=== PATIENT | female | born 1985 | race Caucasian/White ===

== ENCOUNTER 2018-03-22 01:10 | Emergency (ER) | payer OTHER ==
[~2018-03-22] VITALS: Ht 152.4 cm; Wt 83.9 kg
[2018-03-22] MEDS ORDERED: RX-NAPROXEN (NAPROSYN) 250 MG TAB PPK#4 PO STA (01:35)
--- NOTE | 2018-03-22 01:38 | ED EENT ---
History of Present Illness General Chief Complaint: Dental Problems/Pain Stated Complaint: TOOTH PAIN Nursing Triage Note: PT TO ED 6 W/ C/O DENTAL PAIN ONSET AFTER BREAKING A TOOTH WHILE EATING. PT POINTS WHEN TALKING ABOUT BROKEN TOOTH TO THE TOP FRONT BUT WHEN ASKED WHERE THE BROKEN TOOTH IS, PT STATES TOOTH ON THE BOTTOM AT THE BACK. REPORTS JUST MOVED HERE AND DOES NOT HAVE A DENTIST Source: patient Exam Limitations: no limitations History of Present Illness Date Seen by Provider: Mar 22, 2018 Time Seen by Provider: 01:25 Initial Comments PT ARRIVES VIA POV FROM HOME C/O DENTAL PAIN--STATES HER TOOTH BROKE OFF WHILE SHE WAS EATING "SOMETIME TONIGHT" --CANNOT STATE AROUND WHAT TIME, OR WHAT SHE WAS EATING AT THE TIME NO RELIEF WITH 2 ALEVE, TAKEN 3 HOURS AGO. HAS HISTORY OF SIMILAR ON ANOTHER TOOTH. PT DOES NOT HAVE A DENTIST --STATES HE JUST MOVED HERE 2 MONTHS AGO FROM [place], [place]. LMP 2 MONTHS AGO. NO CONTROL. STATES LAST INTERCOURSE WAS OVER 5 MONTHS AGO NO PCP NO DENTIST Allergies and Home Medications Allergies Coded Allergies: No Known Drug Allergies (Unverified , 03/22/18) Home Medications Amoxicillin/Potassium Clav 1 Each Tablet, 1 EACH PO BID Prescribed by: AVRIL PENNINGTON on 03/22/18 014 Lidocaine HCl 15 Ml Solution, 15 ML MM Q 1-2 HOURS Prescribed by: AVRIL PENNINGTON on 03/22/18 014 Naproxen 500 Mg Tablet, 500 MG PO BID Prescribed by: AVRIL PENNINGTON on 03/22/18 0140 Patient Home Medication List Home Medication List Reviewed: Yes Review of Systems Constitutional: no symptoms reported Eyes: No Symptoms Reported Ears: No Symptoms Reported Nose: no symptoms reported Mouth: see HPI, pain; denies swelling Throat: no symptoms reported Respiratory: no symptoms reported Cardiovascular: no symptoms reported Musculoskeletal: no symptoms reported Skin: no symptoms reported Neurological: No Symptoms Reported Hematologic/Lymphatic: No Symptoms Reported Past Alqwrel-Uyihdq-Iivbso Hx Patient Social History Alcohol Use: Denies Use Recreational Drug Use: No Smoking Status: Never a Smoker Recent Foreign Travel: No Contact w/Someone Who Travel: No Recent Infectious Disease Expo: No Recent Hopitalizations: No Past Medical History Surgeries: Yes (WISDOM TEETH REMOVED) Respiratory: No Cardiac: No Neurological: No : No Genitourinary: No Gastrointestinal: No Musculoskeletal: No Endocrine: No HEENT: No Cancer: No Psychosocial: No Integumentary: No Blood Disorders: No Physical Exam Vital Signs Vital Signs - First Documented 03/22/18 01:23 Temp 95.7 Pulse 108 Resp 20 B/P (MAP) 134/97 (109) Pulse Ox 99 O2 Delivery Room Air General Appearance: no apparent distress, obese Eyes: bilateral eye normal inspection, bilateral eye PERRL, bilateral eye EOMI Ears: bilateral ear TM normal Nose: normal inspection Mouth/Throat: No mandibular swelling, No maxillary swelling; other (RIGHT LOWER 2ND MOLAR WITH EXTENSIVE DECAY DOWN TO GUMS, WITH PART OF TOOTH APPEARING TO BE BROKEN OFF. NO BLEEDING. NO SWELLING OF GUMS. 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, no motor/sensory deficits, alert, normal mood/affect, oriented x 3 Skin: normal color Progress/Results/Core Measures Results/Orders My Orders Orders - AVRLI PENNINGTON DO Rx-Naproxen (Rx-Naprosyn) (03/22/18 01:35) Amoxicillin/Clavulanate Tablet (Augmenti (03/22/18 01:45) Lidocaine 2% Viscous 15 Ml (Xylocaine Vi (03/22/18 01:45) Medications Given in ED Current Medications Medications Dose Ordered Sig/Liliam Route Start Time Stop Time Status Last Admin Dose Admin Lidocaine HCl 5 ml ONCE ONCE PO 03/22/18 01:45 03/22/18 01:46 DC 03/22/18 01:59 5 ML Vital Signs/I&O 03/22/18 03/22/18 01:23 02:00 Temp 95.7 95.7 Pulse 108 108 Resp 20 20 B/P (MAP) 134/97 (109) 134/97 (109) Pulse Ox 99 99 O2 Delivery Room Air Blood Pressure Mean: 109 Departure Impression Primary Impression: Dental caries Additional Impression: Broken tooth Disposition: HOME, SELF-CARE Condition: Stable Departure-Patient Inst. Referrals: NO,LOCAL PHYSICIAN (PCP) Primary Care Physician Patient Instructions: Fractured Tooth (DC), Dental Pain (DC), Tooth Decay, Adult (DC) Add. Discharge Instructions: FREQUENT SALT WATER SWISHES TYLENOL NEEDED FOR PAIN FOLLOW UP WITH DENTIST OF CHOICE NEXT WEEK FOR FURTHER CARE All discharge instructions reviewed with patient and/or family. Voiced understanding. Scripts Naproxen (Naproxen) 500 Mg Tablet 500 MG PO BID, #20 TAB Prov: AVRIL PENNINGTON DO 03/22/18 Lidocaine HCl (Lidocaine HCl Viscous) 15 Ml Solution 15 ML MM Q 1-2 HOURS for Pain, #100 ML Prov: AVRIL PENNINGTON DO 03/22/18 Amoxicillin/Potassium Clav (Augmentin 875-125 Tablet) 1 Each Tablet 1 EACH PO BID for INFECTION, #20 TAB Prov: AVRIL PENNINGTON DO 03/22/18 AVRIL PENNINGTON DO Mar 22, 2018 01:38
[2018-03-22] MEDS ORDERED: NAPR-915 PO (01:40)
[2018-03-22] MEDS ORDERED: AMOX-358 PO (01:40)
[2018-03-22] MEDS ORDERED: LIDO15SO2 MM (01:40)
[2018-03-22] MEDS ORDERED: LIDOCAINE 2% VISCOUS 15 ML UDC PO ONE (01:45)
[2018-03-22] MEDS ORDERED: AUGMENTIN 875 MG TAB (AMOXICILLIN/CLAVULANATE) PO SCH (01:45)
[2018-03-22 02:00] VITALS: BP 134/97
== END 2018-03-22 02:00 | disposition home or self-care (01) ==
LOC: ER 01:16
DX: K02.9 Dental caries, unspecified (principal); K03.81 Cracked tooth
CPT/HCPCS: 99282

== ENCOUNTER 2018-05-05 22:41 | Emergency (ER) | payer OTHER ==
[~2018-05-05] VITALS: Ht 152.4 cm; Wt 90.7 kg
[~2018-05-05 22:41] MED LIST: AMOX-358 PO; LIDO15SO2 MM; NAPR-915 PO
[2018-05-05] MEDS ORDERED: ALPRAZolam 0.5 MG (XANAX) TAB PO ONE (23:15)
[2018-05-05] MEDS ORDERED: HYDR-700 PO (23:51)
--- NOTE | 2018-05-05 23:51 | ED Psychosocial ---
General Chief Complaint: Psych/Social Disorder Stated Complaint: VOMITING;SHAKING;DEHYDRATION Nursing Triage Note: Patient advises she has been experiencing what she believes to be panic attacks throughout the day. She advises she has an "unexplainable sensation in her head " and her heart begins racing. She advises her mother has a significant hx. of anxiety. Source: patient Exam Limitations: no limitations History of Present Illness Date Seen by Provider: May 05, 2018 Time Seen by Provider: 22:48 Initial Comments This 32-year-old woman presents to the emergency room with an episode of anxiety and palpitations. Symptoms started a few hours ago. Patiently recently moved to the [facility] and has had a change in job functions. She has increased work stress as a result. Patient was taking her dog out after work today when she suddenly was overwhelmed with the things happening around her. Her heart began to race and she began to experience a strange tingling sensation in her head. She had remote episodes similar to this in the past that were felt to be due to anxiety. Her mother suffers from anxiety and has similar episodes. Patient is tearful at this time and noted to have heart rate in the 120s and 130s. She reports clutching the seat in front of her in route to the hospital and praying because movement of the car exacerbated her symptoms and made it hard to breathe. Patient tried to smoke a cigarette tonight because she has a remote history of smoking from which she quit 3 years ago. Attempting to smoke tonight caused nausea and vomiting. Patient has not established with any behavioral health or medical services yet in [place]. She denies any drug or alcohol use of any kind. Patient also has a eroded molar giving her problems for which she has a dental appointment scheduled. Sinus tachycardia was noted on the monitor. Allergies and Home Medications Allergies Coded Allergies: No Known Drug Allergies (Unverified , 05/05/18) Home Medications Amoxicillin/Potassium Clav 1 Each Tablet, 1 EACH PO BID Prescribed by: AVRIL PENNINGTON on 03/22/18 0140 Hydroxyzine HCl 25 Mg Tablet, 25 MG PO Q6H PRN for ANXIETY Prescribed by: JESSIE TELLO on 05/05/18 0391 Lidocaine HCl 15 Ml Solution, 15 ML MM Q 1-2 HOURS Prescribed by: AVRIL PENNINGTON on 03/22/18 0140 Naproxen 500 Mg Tablet, 500 MG PO BID Prescribed by: AVRIL PENNINGTON on 03/22/18 0140 Patient Home Medication List Home Medication List Reviewed: Yes Constitutional: no symptoms reported EENTM: no symptoms reported Respiratory: see HPI Cardiovascular: see HPI Gastrointestinal: see HPI Genitourinary: no symptoms reported : No LMP: May 05, 2018 Musculoskeletal: no symptoms reported Skin: no symptoms reported Psychiatric/Neurological: See HPI Past Dfclckv-Tyopkt-Cioidj Hx Past Med/Social Hx: Reviewed and Corrections made Patient Social History Alcohol Use: Denies Use Recreational Drug Use: No Smoking Status: Former Smoker Former Smoker, Quit: February 10, 2018 Recent Foreign Travel: No Contact w/Someone Who Travel: No Recent Infectious Disease Expo: No Recent Hopitalizations: No Physical Abuse: No Sexual Abuse: No Past Medical History Surgeries: Yes (WISDOM TEETH REMOVED) Respiratory: No Cardiac: Yes Hypertension (borderline hypertension) Neurological: No Genitourinary: No Gastrointestinal: No Musculoskeletal: No Endocrine: No HEENT: No Cancer: No Psychosocial: Yes Anxiety Nursing Suicide Risk Score: 0 Integumentary: No Blood Disorders: No Family Medical History Reviewed and Corrections made Psychiatric Problems (anxiety) Physical Exam Vital Signs - First Documented 05/05/18 23:19 Temp 99.2 Pulse 133 Resp 16 B/P (MAP) 141/98 (112) Pulse Ox 98 O2 Delivery Room Air Capillary Refill : Less Than 3 Seconds Height, Weight, BMI Height: 5'0" Weight: 200lbs. oz. 90.286445az; BMI Method:Stated General Appearance: WD/WN, moderate distress HEENT: PERRL/EOMI, normal ENT inspection, other (significant decay of a left lower molar without evidence of abscess or significant gingivitis) Neck: normal inspection Respiratory: lungs clear, normal breath sounds, no respiratory distress, no accessory muscle use Cardiovascular: no edema, no murmur, tachycardia Extremities: normal inspection, no pedal edema Neurologic/Psychiatric: assistant chief engineer II-XII nml as tested, no motor/sensory deficits, alert, oriented x 3, abnormal assistant chief engineer II-XII, other (very anxious and tearful) Appearance/Memory: appropriate appearance, appropriate insight Behavior/Eye Contact: cooperative, good eye contact Skin: normal color, warm/dry Progress/Results/Core Measures Results/Orders My Orders Orders - JESSIE KEY MD Alprazolam Tablet (Xanax Tablet) (05/05/18 23:15) Medications Given in ED Current Medications Medications Dose Ordered Sig/Liliam Route Start Time Stop Time Status Last Admin Dose Admin Alprazolam 0.5 mg ONCE ONCE PO 05/05/18 23:15 05/05/18 23:17 DC 05/05/18 23:14 0.5 MG Vital Signs/I&O 05/05/18 23:19 Temp 99.2 Pulse 133 Resp 16 B/P (MAP) 141/98 (112) Pulse Ox 98 O2 Delivery Room Air Blood Pressure Mean: 112 Progress Progress Note : Progress Note Options discussed with patient. She wishes to try medication to help her calm for the night. Xanax 0.5 mg was given. Patient's roommate also came back which had a calming effect on her. Heart rate promptly returned to normal and she was feeling better about things. Referrals to various resources in [place] were provided. Hydroxyzine was prescribed to help manage her anxiety. Departure Impression Primary Impression: Anxiety attack Additional Impression: Sinus tachycardia Disposition: HOME, SELF-CARE Condition: Improved Departure-Patient Inst. Decision time for Depature: 23:49 Referrals: NO,LOCAL PHYSICIAN (PCP) Primary Care Physician Patient Instructions: Anxiety, Adult (DC) Add. Discharge Instructions: Establish with a primary care provider and a behavioral health provider as soon as possible. Some resources you might be interested in our the [facility]. They provide medical, behavioral health, and dental services. They can be contacted at [phone]. [facility] also has a behavioral health office at [phone]. There is a 24 hour hotline number at [phone] (232-save). For future episodes of panic you may use hydroxyzine as prescribed. Return to the ER if you have worsening symptoms. While you're waiting to establish with a behavioral health provider, find healthy outlets for stress and anxiety such as exercise, healthy social interactions, etc. All discharge instructions reviewed with patient and/or family. Voiced understanding. Scripts Hydroxyzine HCl (Hydroxyzine HCl) 25 Mg Tablet 25 MG PO Q6H PRN for ANXIETY, #10 TAB Prov: JESSIE KEY MD 05/05/18 JESSIE KEY MD May 05, 2018 23:51
[2018-05-06 00:05] VITALS: BP 127/77
== END 2018-05-06 00:04 | disposition home or self-care (01) ==
LOC: EDUNIT# 22:41 → ER 22:43
DX: F41.0 Panic disorder [episodic paroxysmal anxiety] (principal); R00.0 Tachycardia, unspecified; I10 Essential (primary) hypertension; Z87.891 Personal history of nicotine dependence
CPT/HCPCS: 99283

== ENCOUNTER 2018-05-17 11:44 | Emergency (ER) | payer OTHER ==
[~2018-05-17] VITALS: Ht 152.4 cm; Wt 90.7 kg
[~2018-05-17 11:44] MED LIST changes: +HYDR-700 PO
--- NOTE | 2018-05-17 12:16 | ED Psychosocial ---
General Chief Complaint: General Problems/Pain Stated Complaint: DIZZY, ANXIETY Nursing Triage Note: AMB TO ROOM HAS BEEN DIZZY AND LIGHTHEADED FOR 2 WEEKS WAS SEEN IN ED 1 WEEK AGO GIVEN DX OF ANXIETY. STARTED ON MEDS FOR,BUT THEY MAKE HER SLEEPY,AND HAS MISSED WORKED. WORK NEEDS NOTE THAT SAYS SHE IS OK TO GO BACK TO WORK. Source: patient, old records Exam Limitations: no limitations History of Present Illness Date Seen by Provider: May 17, 2018 Time Seen by Provider: 12:05 Initial Comments The patient presents to the ER by private conveyance with chief complaint she's been having some panic attacks lately and she was recently worked up about a week and a half ago in the ER and found to have panic disorder with generalized anxiety. She has an appointment later this month with Dr. Zelaya because she did not have a primary care provider prior to this. She says she was using the Vistaril and while it does help with her anxiety a makes her very drowsy to the point that she misses work. 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 She has not tried cutting the tablet in half. She also has problem with itching in her ears that gets worse from time to time and she will scratch or ears but she does not have any plaques or itchy lesions anywhere else on her body no history of psoriasis or eczema. She does not have a history of asthma. She has tried some mindful breathing exercises that she found on the web. She says they do help her. Her mom also has problems with panic disorder and talking to her mother has reassured her. The patient states her work is asked to have her evaluated and get a work note before returning to work. Allergies and Home Medications Allergies Coded Allergies: No Known Drug Allergies (Unverified , 05/05/18) Home Medications Hydroxyzine HCl 25 Mg Tablet, 25 MG PO Q6H PRN for ANXIETY Prescribed by: JESSIE TELLO on 05/05/18 4203 Patient Home Medication List Home Medication List Reviewed: Yes Constitutional: No chills, No diaphoresis EENTM: see HPI (bilateral itchy ears); No ear discharge, No hearing loss, No ear pain Respiratory: No cough, No short of breath Cardiovascular: No chest pain, No palpitations, No syncope Gastrointestinal: No abdominal pain, No nausea, No vomiting Genitourinary: No discharge, No dysuria : No Past Jxkxrkf-Rnxzby-Vdkljc Hx Patient Social History Alcohol Use: Denies Use Recreational Drug Use: No Smoking Status: Never a Smoker Former Smoker, Quit: February 10, 2018 Recent Foreign Travel: No Contact w/Someone Who Travel: No Recent Infectious Disease Expo: No Recent Hopitalizations: No Past Medical History Surgeries: Yes (WISDOM TEETH REMOVED) Respiratory: No Cardiac: Yes Hypertension Neurological: No Genitourinary: No Gastrointestinal: No Musculoskeletal: No Endocrine: No HEENT: No Cancer: No Psychosocial: Yes Anxiety Integumentary: No Blood Disorders: No Family Medical History Psychiatric Problems Physical Exam Vital Signs - First Documented 05/17/18 11:48 Temp 99.0 Pulse 80 Resp 18 B/P (MAP) 139/88 (105) Capillary Refill : Less Than 3 Seconds Height, Weight, BMI Height: 5'0" Weight: 200lbs. oz. 90.926665am; BMI Method:Stated General Appearance: WD/WN, no apparent distress HEENT: PERRL/EOMI, pharynx normal Respiratory: no respiratory distress, no accessory muscle use Neurologic/Psychiatric: alert, normal mood/affect, oriented x 3 Appearance/Memory: appropriate appearance, appropriate insight, neat, no memory impairment Behavior/Eye Contact: cooperative, good eye contact, normal speech Thoughts/Hallucinations: normal thought pattern, no apparent hallucination Skin: normal color, warm/dry Progress/Results/Core Measures Results/Orders Vital Signs/I&O 05/17/18 11:48 Temp 99.0 Pulse 80 Resp 18 B/P (MAP) 139/88 (105) Blood Pressure Mean: 105 Progress Progress Note : Time: 12:14 Progress Note We discussed some cognitive behavioral therapy techniques as well as encourage her to seek behavioral counseling. We have encouraged her to cut the tablet of Vistaril in half and try that. 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 Departure Impression Primary Impression: Generalized anxiety disorder with panic attacks Additional Impression: Seasonal allergies Disposition: 01 HOME, SELF-CARE Condition: Stable Departure-Patient Inst. Decision time for Depature: 12:16 Referrals: NO,LOCAL PHYSICIAN (PCP) Primary Care Physician BRENTON ZELAYA DO Patient Instructions: Cognitive-Behavioral Therapy, Panic Disorder (DC) Add. Discharge Instructions: Consider seeking counseling from behavioral therapy. You can use the [facility] line or call Dr. Zelaya's office for recommendations. Take your Vistaril tablet and cut in half and use it one half tablet at a time since you are having drowsiness. For the itching in your ears you can take 10 mg of Zyrtec/cetirizine or Claritin /loratadine once a day as needed. All discharge instructions reviewed with patient and/or family. Voiced understanding. Scripts Cetirizine HCl (Cetirizine HCl) 10 Mg Tablet 10 MG PO DAILY PRN for ITCHING for 30 Days, #30 TAB 0 Refills Prov: VINITA CABRAL 05/17/18 Work/School Note: Work Release Form Date Seen in the Emergency Department: May 17, 2018 Return to Work: May 18, 2018 Restrictions: No Restrictions Copy Copies To 1: BRENTON ZELAYA TITUS J May 17, 2018 12:16
[2018-05-17] MEDS ORDERED: CETI10TA17 PO (12:19)
[2018-05-17 12:25] VITALS: BP 139/88
== END 2018-05-17 12:25 | disposition home or self-care (01) ==
LOC: EDUNIT# 11:44 → ER 11:46
DX: F41.0 Panic disorder [episodic paroxysmal anxiety] (principal); J30.2 Other seasonal allergic rhinitis; I10 Essential (primary) hypertension
CPT/HCPCS: 99281

== ENCOUNTER 2018-05-30 20:55 | Emergency (ER) | payer OTHER ==
[~2018-05-30] VITALS: Ht 152.4 cm; Wt 81.6 kg
[~2018-05-30 20:55] MED LIST changes: +CETI10TA17 PO
--- NOTE | 2018-05-30 21:42 | ED EENT ---
History of Present Illness General Chief Complaint: Ear Problems Stated Complaint: EAR INFECTION Nursing Triage Note: Pt c/o L ear pain x1 week after cleaning ear w/ qtip. Pt reports recently being treated w/ antibiotics for ear infection History of Present Illness Date Seen by Provider: May 30, 2018 Time Seen by Provider: 21:30 Initial Comments 32-year-old female Patient presents with left ear pain and decreased hearing. He reports the symptoms present for approximately one week. It got worse over the last 24 hours. Timing/Duration: last week Severity: mild Location: ear (L) Prearrival Treatment: no prearrival treatment Associated Symptoms: No fever Allergies and Home Medications Allergies Coded Allergies: No Known Drug Allergies (Unverified , 05/05/18) Home Medications Azithromycin 250 Mg Tablet, 250 MG PO DAILY Prescribed by: CHRISTI MATIAS on 05/30/18 2143 Cetirizine HCl 10 Mg Tablet, 10 MG PO DAILY PRN for ITCHING Prescribed by: VINITA CABRAL on 05/17/18 1219 Hydroxyzine HCl 25 Mg Tablet, 25 MG PO Q6H PRN for ANXIETY Prescribed by: JESSIE TELLO on 05/05/18 2351 Patient Home Medication List Home Medication List Reviewed: Yes Review of Systems Constitutional: no symptoms reported, see HPI Ears: See HPI, Pain, Purulent Discharge All Other Systems Reviewed Negative Unless Noted: Yes Past Kgaiqdh-Xtrpgz-Gmtcmc Hx Past Med/Social Hx: Reviewed Nursing Past Med/Soc Hx Patient Social History Alcohol Use: Denies Use Recreational Drug Use: No Smoking Status: Never a Smoker Former Smoker, Quit: February 10, 2018 Recent Foreign Travel: No Contact w/Someone Who Travel: No Recent Infectious Disease Expo: No Recent Hopitalizations: No Seasonal Allergies Seasonal Allergies: No Past Medical History Surgeries: Yes (WISDOM TEETH REMOVED) Respiratory: No Cardiac: Yes (per past records, pt denies any current medical issues) Hypertension Neurological: No Genitourinary: No Gastrointestinal: No Musculoskeletal: No Endocrine: No HEENT: No Cancer: No Psychosocial: Yes Anxiety Integumentary: No Blood Disorders: No Family Medical History Psychiatric Problems Physical Exam Vital Signs Vital Signs - First Documented 05/30/18 21:00 Temp 97.0 Pulse 98 Resp 18 B/P (MAP) 123/100 (108) Pulse Ox 97 O2 Delivery Room Air Height, Weight, BMI Height: 5'0" Weight: 180lbs. oz. 81.849341ph; BMI Method:Stated General Appearance: WD/WN, no apparent distress Eyes: bilateral eye normal inspection, bilateral eye PERRL, bilateral eye EOMI Ears: right ear canal normal, right ear TM normal; left ear erythema, left ear swelling, left ear tenderness, left ear TM dull, left ear other (Canal with purulent drainage present.); bilateral ear auricle normal Nose: normal inspection; No active bleeding Neck: non-tender, full range of motion; No lymphadenopathy (R), No lymphadenopathy (L) Cardiovascular: normal peripheral pulses, regular rate, rhythm Respiratory: chest non-tender, lungs clear Neurologic/Psychiatric: no motor/sensory deficits, alert, normal mood/affect, oriented x 3 Progress/Results/Core Measures Results/Orders My Orders Orders - CHRISTI MATIAS Azithromycin Tablet (Zithromax Tablet) (05/30/18 21:45) Medications Given in ED Current Medications Medications Dose Ordered Sig/Liliam Route Start Time Stop Time Status Last Admin Dose Admin Azithromycin 500 mg ONCE ONCE PO 05/30/18 21:45 05/30/18 21:46 DC 05/30/18 21:54 500 MG Vital Signs/I&O 05/30/18 21:00 Temp 97.0 Pulse 98 Resp 18 B/P (MAP) 123/100 (108) Pulse Ox 97 O2 Delivery Room Air Blood Pressure Mean: 108 Departure Impression Primary Impression: Otitis externa Qualified Codes: H60.312 - Diffuse otitis externa, left ear Disposition: 01 HOME, SELF-CARE Condition: Improved Departure-Patient Inst. Decision time for Depature: 21:40 Referrals: NO,LOCAL PHYSICIAN (PCP/Family) Primary Care Physician Patient Instructions: Outer Ear Infection (DC) Add. Discharge Instructions: You may alternate between Tylenol 650 mg and ibuprofen 600 mg every 4 hours for pain or fever. Makes a 50-50 solution of alcohol and white vinegar, put 5-6 drops in your left ear 3-4 times daily. Take antibiotic as prescribed. Follow-up with your primary care provider in 2-3 days if symptoms are not improving or worsen. Return to emergency department for new, acute health care problems. All discharge instructions reviewed with patient and/or family. Voiced understanding. Scripts Azithromycin (Azithromycin) 250 Mg Tablet 250 MG PO DAILY, #4 TAB 0 Refills Prov: CHRISTI MATIAS 05/30/18 CHRISTI MATIAS May 30, 2018 21:42
[2018-05-30] MEDS ORDERED: AZIT250T12 PO (21:43)
[2018-05-30] MEDS ORDERED: AZITHROMYCIN 250 MG TAB (ZITHROMAX) PO ONE (21:45)
[2018-05-30 21:55] VITALS: BP 103/72
== END 2018-05-30 21:55 | disposition home or self-care (01) ==
LOC: EDUNIT# 20:55 → ER 20:56
DX: H60.92 Unspecified otitis externa, left ear (principal); I10 Essential (primary) hypertension; F41.9 Anxiety disorder, unspecified
CPT/HCPCS: 99283

== ENCOUNTER 2018-09-17 08:54 | Emergency (ER) | payer OTHER ==
[~2018-09-17] VITALS: Ht 152.4 cm; Wt 90.7 kg
[~2018-09-17 08:54] MED LIST changes: +AZIT250T12 PO
[2018-09-17] MEDS ORDERED: LACTATED RINGERS 1,000 ML IV ONE (09:11)
[2018-09-17] MEDS ORDERED: KETOROLAC 30 MG/ML VIAL IVP ONE (09:15)
[2018-09-17] MEDS ORDERED: ONDANSETRON 4 MG/2 ML (SDV) Z0FRAN IV PRN (09:15)
--- NOTE | 2018-09-17 09:23 | ED Headache ---
General Stated Complaint: BACK PAIN;HEADACHE;RASH Source: patient Exam Limitations: no limitations History of Present Illness Date Seen by Provider: Sep 17, 2018 Time Seen by Provider: 08:54 Initial Comments Patient presents to ER by private conveyance with chief complaint of a headache for the past 3 days accompanied with nausea without vomiting. She's been drinking okay but not eating as much. No fever but she did have a temperature of 99. She took aspirin as well as Advil with minimal relief of her headache but the Advil PM didn't help her get some sleep. The headache is woke her up. She's having some neck stiffness as well as low back stiffness and soreness on motion. The headache is accompanied with photophobia but not phonophobia. No hallucination. She has no history of migraines or headaches. She's having no painful urination, abdominal or chest pain, cough shortness of breath. She's had some chills got better after she took the Advil. This morning she tried some Sudafed thinking since the headache was frontal non-throbbing that maybe it was from her sinuses that she's having no nasal congestion or discharge. The Sudafed was taken at 0 400 this morning. Allergies and Home Medications Allergies Coded Allergies: No Known Drug Allergies (Unverified , 05/05/18) Home Medications Azithromycin 250 Mg Tablet, 250 MG PO DAILY Prescribed by: CHRISTI MATIAS on 05/30/18 2143 Cetirizine HCl 10 Mg Tablet, 10 MG PO DAILY PRN for ITCHING Prescribed by: VINITA CABRAL on 05/17/18 1219 Hydroxyzine HCl 25 Mg Tablet, 25 MG PO Q6H PRN for ANXIETY Prescribed by: JESSIE TELLO on 05/05/18 2351 Patient Home Medication List Home Medication List Reviewed: Yes Review of Systems Review of Systems Constitutional: chills; No fever; malaise Eyes: Denies Blindness, Denies Blurred Vision, Denies Pain; Photophobia Ears, Nose, Mouth, Throat: denies ear pain, denies ear discharge Respiratory: No cough, No short of breath Cardiovascular: No chest pain, No edema Gastrointestinal: No abdominal pain, No constipation, No diarrhea Genitourinary: No discharge, No dysuria : No Musculoskeletal: No back pain, No joint pain Psychiatric/Neurological: Headache; Denies Numbness, Denies Paresthesia Past Qenpyuh-Lcrtug-Qswssn Hx Patient Social History Alcohol Use: Denies Use Recreational Drug Use: No Smoking Status: Never a Smoker Former Smoker, Quit: February 10, 2018 Recent Hopitalizations: No Seasonal Allergies Seasonal Allergies: No Past Medical History Surgeries: Yes (WISDOM TEETH REMOVED) Respiratory: No Cardiac: Yes (per past records, pt denies any current medical issues) Hypertension Neurological: No Genitourinary: No Gastrointestinal: No Musculoskeletal: No Endocrine: No HEENT: No Cancer: No Psychosocial: Yes Anxiety Integumentary: No Blood Disorders: No Family Medical History Psychiatric Problems Physical Exam Vital Signs Vital Signs - First Documented 09/17/18 09:01 Temp 98.0 Pulse 134 Resp 18 Capillary Refill : Height, Weight, BMI Height: 5'0" Weight: 180lbs. oz. [id number]; BMI Method:Stated General Appearance: WD/WN, no apparent distress HEENT: PERRL/EOMI, normal ENT inspection, TMs normal, pharynx normal (mild pharyngeal erythema without tonsillar swelling or exudate) Neck: non-tender, full range of motion, normal inspection Cardiovascular: normal peripheral pulses, regular rate, rhythm, no edema Respiratory: chest non-tender, lungs clear, normal breath sounds, no respiratory distress, no accessory muscle use Gastrointestinal: normal bowel sounds, non tender, soft Extremities: non-tender, normal inspection, normal capillary refill Psychiatric: alert, oriented x 3 Crainal Nerves: normal hearing, normal speech, PERRL Coordination/Gait: normal gait Motor/Sensory: no motor deficit, no sensory deficit Skin: normal color, warm/dry Progress/Results/Core Measures Results/Orders Lab Results Laboratory Tests Test 09/17/18 09:20 09/17/18 10:22 Range/Units White Blood Count 9.3 4.3-11.0 10^3/uL Red Blood Count 5.09 4.35-5.85 10^6/uL Hemoglobin 14.4 11.5-16.0 G/DL Hematocrit 42 35-52 % Mean Corpuscular Volume 82 80-99 FL Mean Corpuscular Hemoglobin 28 25-34 PG Mean Corpuscular Hemoglobin Concent 35 32-36 G/DL Red Cell Distribution Width 12.9 10.0-14.5 % Platelet Count 328 130-400 10^3/uL Mean Platelet Volume 10.3 7.4-10.4 FL Neutrophils (%) (Auto) 61 42-75 % Lymphocytes (%) (Auto) 29 12-44 % Monocytes (%) (Auto) 7 0-12 % Eosinophils (%) (Auto) 2 0-10 % Basophils (%) (Auto) 0 0-10 % Neutrophils # (Auto) 5.7 1.8-7.8 X 10^3 Lymphocytes # (Auto) 2.7 1.0-4.0 X 10^3 Monocytes # (Auto) 0.7 0.0-1.0 X 10^3 Eosinophils # (Auto) 0.2 0.0-0.3 10^3/uL Basophils # (Auto) 0.0 0.0-0.1 10^3/uL Prothrombin Time 12.4 12.2-14.7 SEC INR Comment 0.9 0.8-1.4 Activated Partial Thromboplast Time 29 24-35 SEC Sodium Level 138 135-145 MMOL/L Potassium Level 4.1 3.6-5.0 MMOL/L Chloride Level 108 H 98-107 MMOL/L Carbon Dioxide Level 21 21-32 MMOL/L Anion Gap 9 5-14 MMOL/L Blood Urea Nitrogen 8 7-18 MG/DL Creatinine 0.75 0.60-1.30 MG/DL Estimat Glomerular Filtration Rate > 60 BUN/Creatinine Ratio 11 Glucose Level 103 70-105 MG/DL Lactic Acid Level 1.24 0.50-2.00 MMOL/L Calcium Level 9.2 8.5-10.1 MG/DL Corrected Calcium 9.1 8.5-10.1 MG/DL Total Bilirubin 0.4 0.1-1.0 MG/DL Aspartate Amino Transf (AST/SGOT) 18 5-34 U/L Alanine Aminotransferase (ALT/SGPT) 11 0-55 U/L Alkaline Phosphatase 73 40-136 U/L C-Reactive Protein High Sensitivity 0.51 H 0.00-0.50 MG/DL Total Protein 7.3 6.4-8.2 GM/DL Albumin 4.1 3.2-4.5 GM/DL Serum Test, Qualitative NEGATIVE NEGATIVE Monoscreen NEGATIVE NEGATIVE Urine Color YELLOW Urine Clarity CLEAR Urine pH 6.5 5-9 Urine Specific [place] 1.005 L 1.016-1.022 Urine Protein NEGATIVE NEGATIVE Urine Glucose (UA) NEGATIVE NEGATIVE Urine Ketones NEGATIVE NEGATIVE Urine Nitrite NEGATIVE NEGATIVE Urine Bilirubin NEGATIVE NEGATIVE Urine Urobilinogen NORMAL NORMAL MG/DL Urine Leukocyte Esterase NEGATIVE NEGATIVE Urine RBC (Auto) NEGATIVE NEGATIVE Urine RBC NONE /HPF Urine WBC 0-2 /HPF Urine Squamous Epithelial Cells 2-5 /HPF Urine Renal Epithelial Cells NONE /HPF Urine Crystals NONE /LPF Urine Bacteria NEGATIVE /HPF Urine Casts NONE /LPF Urine Mucus NEGATIVE /LPF Urine Culture Indicated NO Micro Results Microbiology 09/17/18 Influenza Types A,B Antigen (HATTIE) - Final, Complete My Orders Orders - VINITA CABRAL Cbc With Automated Diff (09/17/18 09:11) Comprehensive Metabolic Panel (09/17/18 09:11) Blood Culture (09/17/18 09:11) Sputum Culture (09/17/18 09:11) Urinalysis (09/17/18 09:11) Urine Culture (09/17/18 09:11) Protime With Inr (09/17/18 09:11) Partial Thromboplastin Time (09/17/18 09:11) Chest 1 View, Ap/Pa Only (09/17/18 09:11) Saline Lock/Iv-Start (09/17/18 09:11) Saline Lock/Iv-Start (09/17/18 09:11) Vital Signs Adult Sepsis Patie Q15M (09/17/18 09:11) Ondansetron Injection (Zofran Injectio (09/17/18 09:15) O2 (09/17/18 09:11) Remove Rings In Anticipation O (09/17/18 09:11) Lactic Acid Analyzer (09/17/18 09:11) Influenza A And B Antigens (09/17/18 09:11) Lactated Ringers (Lr 1000 Ml Iv Solution (09/17/18 09:11) Ketorolac Injection (Toradol Injection) (09/17/18 09:15) Hcg,Qualitative Serum (09/17/18 09:11) Hs C Reactive Protein (09/17/18 09:26) Monotest (09/17/18 09:35) Medications Given in ED Current Medications Medications Dose Ordered Sig/Liliam Route Start Time Stop Time Status Last Admin Dose Admin Ketorolac Tromethamine 30 mg ONCE ONCE IVP 09/17/18 09:15 09/17/18 09:19 DC 09/17/18 09:32 30 MG Lactated Ringer's 1,000 ml @ 0 mls/hr Q0M ONCE IV 09/17/18 09:11 12 09:19 DC 09/17/18 09:33 1,000 MLS/HR Ondansetron HCl 4 mg PRN PRN IV 09/17/18 09:15 09/17/18 09:33 DC 09/17/18 09:31 4 MG Vital Signs/I&O 09/17/18 09:01 Temp 98.0 Pulse 134 Resp 18 B/P (MAP) Progress Progress Note #1: Time: 09:22 Progress Note The patient has tachycardia prompting a septic workup however could just be from the Sudafed taken 5 hours ago. She has dry oral mucosa which also could be from Sudafed. We have her a liter fluids observe her for an hour or so over getting labs back and use some Zofran and ketorolac 60. Her symptoms. I now she does not appear acutely ill and differential includes an acute headache secondary to viral illness. There is no strong symptoms of meningismus at this point. Progress Note #2: Time: 11:43 Progress Note Symptoms have significantly improved with NSAIDs and fluids. No laboratory evidence or further clinical evidence to suggest severe acute disease. We'll let her follow up outpatient as necessary with primary care. Diagnostic Imaging Diagonstic Imaging: Xray Plain Films/CT/US/NM/MRI: chest (1v) Reviewed: Reviewed by Me Departure Impression Primary Impression: Acute viral syndrome Additional Impressions: Headache, tension-type Qualified Codes: G44.209 - Tension-type headache, unspecified, not intractable Nausea Disposition: 01 HOME, SELF-CARE Condition: Improved Departure-Patient Inst. Decision time for Depature: 11:48 Referrals: NO,LOCAL PHYSICIAN (PCP/Family) Primary Care Physician Patient Instructions: Headache, Adult (DC) Add. Discharge Instructions: Drink plenty of fluids. If you have nausea take one tablet of Zofran every 6 hours as needed and allow to absorb through your mouth. Use Tylenol 1000 mg every 8 hours in addition to ibuprofen/Advil 800 mg every 8 hours as needed for headache, body ache. If your symptoms persist beyond Friday then you should follow-up with the primary care provider or urgent care. Scripts Ondansetron (Ondansetron Odt) 4 Mg Tab.rapdis 4 MG PO Q6H PRN for NAUSEA/VOMITING, #8 TAB 0 Refills Prov: VINITA CABRAL 09/17/18 VINITA CABRAL Sep 17, 2018 09:23
[2018-09-17 09:30] LABS: BASOPHILS % (AUTO) 0 % (0-10); EOSINOPHILS # (AUTO) 0.2 10^3/uL (0.0-0.3); EOSINOPHILS % (AUTO) 2 % (0-10); HEMATOCRIT 42 % (35-52); HEMOGLOBIN 14.4 G/DL (11.5-16.0); LYMPHOCYTES # (AUTO) 2.7 X 10^3 (1.0-4.0); LYMPHOCYTES % (AUTO) 29 % (12-44); MEAN CORPUSCULAR HEMOGLOBIN 28 PG (25-34); MEAN CORPUSCULAR HGB CONC 35 G/DL (32-36); MEAN CORPUSCULAR VOLUME 82 FL (80-99); MEAN PLATELET VOLUME 10.3 FL (7.4-10.4); MONOCYTES # (AUTO) 0.7 X 10^3 (0.0-1.0); MONOCYTES % (AUTO) 7 % (0-12); NEUTROPHILS # (AUTO) 5.7 X 10^3 (1.8-7.8); NEUTROPHILS % (AUTO) 61 % (42-75); PLATELET COUNT 328 10^3/uL (130-400); RED BLOOD COUNT 5.09 10^6/uL (4.35-5.85); RED CELL DISTRIBUTION WIDTH 12.9 % (10.0-14.5); WHITE BLOOD COUNT 9.3 10^3/uL (4.3-11.0)
[2018-09-17 09:45] LABS: INR 0.9 (0.8-1.4); PROTHROMBIN TIME PATIENT 12.4 SEC (12.2-14.7)
[2018-09-17 09:52] LABS: ALANINE AMINOTRANSFERASE 11 U/L (0-55); ALBUMIN 4.1 GM/DL (3.2-4.5); ALKALINE PHOSPHATASE 73 U/L (40-136); BILIRUBIN,TOTAL 0.4 MG/DL (0.1-1.0); BUN/CREATININE RATIO 11; CALCIUM 9.2 MG/DL (8.5-10.1); CARBON DIOXIDE 21 MMOL/L (21-32); CHLORIDE 108 MMOL/L (98-107); CREATININE SERUM 0.75 MG/DL (0.60-1.30); GFR ESTIMATED > 60; GLUCOSE 103 MG/DL (70-105); POTASSIUM 4.1 MMOL/L (3.6-5.0); SODIUM 138 MMOL/L (135-145); TOTAL PROTEIN 7.3 GM/DL (6.4-8.2)
[2018-09-17 10:30] LABS: BILIRUBIN,URINE NEGATIVE (NEGATIVE); CLARITY,URINE CLEAR; COLOR,URINE YELLOW; GLUCOSE, URINE (UA) NEGATIVE (NEGATIVE); KETONES,URINE NEGATIVE (NEGATIVE); LEUKOCYTE ESTERASE ,URINE NEGATIVE (NEGATIVE); NITRITE,URINE NEGATIVE (NEGATIVE); PH,URINE 6.5 (5-9); PROTEIN,URINE NEGATIVE (NEGATIVE); UROBILINOGEN,URINE NORMAL (NORMAL)
--- NOTE | 2018-09-17 10:37 | Diagnostic Imaging Report ---
INDICATION: Headache.. TECHNIQUE: Single view chest 10:04 AM. CORRELATION STUDY: None FINDINGS: The heart size, mediastinal configuration and pulmonary vascularity are within normal limits. Attenuation at lung bases likely overlapping summation shadow. The lungs are clear with no consolidating infiltrate. There is no significant effusion or pneumothorax. IMPRESSION: 1. No radiographic findings to suggest acute abnormality of the chest. Dictated by: Dictated on workstation # [id number]
[2018-09-17 10:44] LABS: BACTERIA,URINE NEGATIVE /HPF; WBC,URINE 0-2 /HPF
[2018-09-17] MEDS ORDERED: ONDA4TAB11 PO (11:49)
[2018-09-17 11:56] VITALS: BP 109/79
== END 2018-09-17 11:56 | disposition home or self-care (01) ==
LOC: EDUNIT# 08:54 → ER 08:55
DX: B34.9 Viral infection, unspecified (principal); R51 Headache; R11.0 Nausea; I10 Essential (primary) hypertension; F41.9 Anxiety disorder, unspecified; Z87.891 Personal history of nicotine dependence
CPT/HCPCS: 36415; 71045; 80053; 81000; 83605; 84703; 85025; 85610; 85730; 86141; 86308; 87040; 87088; 87804